=== PATIENT | female | born 2000 | race Two or more races ===

== ENCOUNTER 2020-04-26 03:08 | Emergency (ER) | payer BC ==
--- NOTE | 2020-04-26 05:15 | ER Document Report ---
HPI - HPI Time Seen by Provider: 04/26/20 04:51 Pain Level: 5 Notes: 19-year-old female insulin-dependent diabetic presenting to the emergency department concern for possible abscesses. Patient reports she keeps getting recurrent abscesses in her groin area and also in her axillary areas. She states that she has had to have these drained before and they keep returning. She denies any fever or chills, states that she is otherwise well. Denies any known history of MRSA. - ROS Systems Reviewed and Negative: Yes All other systems reviewed and negative - DERM Skin Problems: Pustule Past Medical History - General Information source: Patient - Social History Smoking Status: Never Smoker Frequency of alcohol use: None Drug Abuse: None Family History: DM Patient has homicidal ideation: No Endocrine Medical History: Reports: Hx Diabetes Mellitus Type 1 Vertical Provider Document - CONSTITUTIONAL Notes: PHYSICAL EXAMINATION: GENERAL: Well-appearing, well-nourished and in no acute distress. HEAD: Atraumatic, normocephalic. EYES: Pupils equal round extraocular movements intact, conjunctiva are normal. ENT: Nares patent NECK: Normal range of motion LUNGS: No respiratory distress Musculoskeletal: Normal range of motion NEUROLOGICAL: Normal speech, normal gait. PSYCH: Normal mood, normal affect. SKIN: Multiple pustule/indurated areas around groin and lower abdomen. Course - Re-evaluation Re-evalutation: Patient's physical exam consistent with hidradenitis. None of the areas required drainage at this time. We will start her on doxycycline. I encouraged the use of control if she is sexually active. She denies being sexually active at this time. I also encouraged her to follow-up with dermatology. - Vital Signs Vital signs: Temp Pulse Resp BP Pulse Ox 98.9 F 112 H 14 127/84 H 99 04/26/20 04:29 04/26/20 04:29 04/26/20 04:29 04/26/20 03:21 04/26/20 04:29 - Laboratory Result Diagrams: 04/26/20 04:24 04/26/20 04:24 Discharge - Discharge Clinical Impression: Hidradenitis suppurativa Condition: Stable Disposition: HOME, SELF-CARE Additional Instructions: Take medication as prescribed. Please make sure to use control as you would not want to get on this medication as it would be harmful. Follow-up with dermatology. Prescriptions: Doxycycline Hyclate [Vibramycin 100 mg Tablet] 100 mg PO BID #60 tablet Referrals: SALVATORE TOPETE DO [ACTIVE STAFF] - Follow up as needed
[2020-04-26] MEDS ORDERED: DOXYCYCLINE HYCLATE 100 MG TABLET PO ONE (05:19)
[2020-04-26 05:24] LABS: ABSOLUTE EOSINOPHILS # (AUTO) 0.1 10^3/uL (0.0-0.6); ABSOLUTE LYMPHOCYTES (AUTO) 1.3 10^3/uL (0.5-4.7); ABSOLUTE MONOCYTES (AUTO) 0.7 10^3/uL (0.1-1.4); ABSOLUTE NEUT (AUTO) 5.4 10^3/uL (1.7-8.2); BASOPHILS % (AUTO) 0.6 % (0-2); EOSINOPHILS % (AUTO) 0.9 % (0-6); HEMATOCRIT 44.7 % (36.0-47.0); HEMOGLOBIN 15.7 g/dL (12.0-15.5); LYMPHOCYTES % (AUTO) 17.6 % (13-45); MEAN CORPUSCULAR HEMOGLOBIN 28.8 pg (27.0-33.4); MEAN CORPUSCULAR HGB CONC 35.2 g/dL (32.0-36.0); MEAN CORPUSCULAR VOLUME 82 fl (80-97); MONOCYTES % (AUTO) 9.2 % (3-13); PLATELET COUNT 273 10^3/uL (150-450); RED BLOOD COUNT 5.46 10^6/uL (3.72-5.28); RED CELL DISTRIBUTION WIDTH 14.3 % (11.5-14.0); SEGMENTED NEUTROPHILS % (AUTO) 71.7 % (42-78); TOTAL CELLS COUNTED % (AUTO) 100 %; WHITE BLOOD COUNT 7.5 10^3/uL (4.0-10.5)
[2020-04-26 05:33] LABS: ALBUMIN 4.7 g/dL (3.7-5.6); ALKALINE PHOSPHATASE 241 U/L (50-135); ASPARTATE AMINO TRANSFERASE 19 U/L (5-30); BILIRUBIN,DIRECT 0.5 mg/dL (0.0-0.4); BILIRUBIN,TOTAL 0.9 mg/dL (0.2-1.3); BLOOD UREA NITROGEN 19 mg/dL (7-20); CARBON DIOXIDE 12 mmol/L (22-30); CHLORIDE 100 mmol/L (98-107); GLUCOSE 368 mg/dL (75-110); INTERNATIONAL RATION (INR) 0.94; POTASSIUM 4.1 mmol/L (3.6-5.0); PROTHROMBIN TIME 12.8 SEC (11.4-15.4); TOTAL PROTEIN 8.3 g/dL (6.3-8.2)
[2020-04-26 05:35] VITALS: BP 113/71
[2020-04-26 05:36] LABS: ANION GAP 22 (5-19)
== END 2020-04-26 05:45 | disposition home or self-care (01) ==
LOC: ER 03:08
DX: L73.2 Hidradenitis suppurativa (principal); E10.9 Type 1 diabetes mellitus without complications
CPT/HCPCS: 36415; 80053; 83605; 85025; 85610; 87040; 87077; 87150; 87186; 99283